=== PATIENT | male | born 1940 | race Caucasian/White ===

== ENCOUNTER 2022-06-22 15:09 | Inpatient (IN) | payer OTHER ==
[~2022-06-22] VITALS: Ht 190.5 cm; Wt 104.3 kg
[2022-06-22] MEDS ORDERED: MORPHINE SULFATE 4 MG/1 ML DISP.SYRIN IV ONE (15:15)
[2022-06-22] MEDS ORDERED: AMLO5TAB4 PO (15:21)
[2022-06-22] MEDS ORDERED: APIX5TAB PO (15:21)
[2022-06-22 15:32] LABS: HEMATOCRIT 41.3 % (36.7-47.1); MEAN CORPUSCULAR HEMOGLOBIN 30.9 uug (23.8-33.4); MEAN CORPUSCULAR VOLUME 94.1 fL (73.0-96.2); PLATELET COUNT (AUTO) 206 K/uL (152-348)
[2022-06-22 15:40] LABS: CARBON DIOXIDE 30 mmol/L (21-32); CHLORIDE 101 mmol/L (98-107); CREATININE 1.5 mg/dL (0.6-1.3); GLUCOSE 123 mg/dL (74-106); UREA NITROGEN, BLOOD 32 mg/dL (7-18)
[2022-06-22] MEDS ORDERED: DEXAMETHASONE SOD PHOSPHATE 4 MG INJ ONE (15:40)
[2022-06-22] MEDS ORDERED: PROPOFOL 200 MG/20 ML BOTTLE ONE (15:40)
[2022-06-22] MEDS ORDERED: ONDANSETRON 4 MG/2 ML VIAL ONE (15:40)
[2022-06-22] MEDS ORDERED: VECURONIUM BROMIDE 10 MG VIAL IV ONE (15:40)
[2022-06-22] MEDS ORDERED: SUCCINYLCHOLINE CHLORIDE 200 MG/10 ML VIAL ONE (15:40)
[2022-06-22] MEDS ORDERED: ESMOLOL HCL 100 MG/10 ML VIAL IV ONE (15:40)
[2022-06-22] MEDS ORDERED: LIDOCAINE-MPF 2% 5 ML VIAL ONE (15:40)
[2022-06-22] MEDS ORDERED: GLYCOPYRROLATE 0.2 MG/ML VIAL ONE (15:40)
[2022-06-22] MEDS ORDERED: CEFAZOLIN 1 G VIAL ONE (15:40)
[2022-06-22] MEDS ORDERED: MORPHINE SULFATE 4 MG/1 ML DISP.SYRIN ONE (15:42)
[2022-06-22 15:53] LABS: ALANINE AMINOTRANSFERASE 42 U/L (16-63); ALKALINE PHOSPHATASE 71 U/L (50-136); ASPARTATE AMINOTRANSFERASE 78 U/L (15-37); BILIRUBIN,TOTAL 0.9 mg/dL (0.2-1.0); TOTAL PROTEIN, SERUM 7.8 g/dL (6.4-8.2)
--- NOTE | 2022-06-22 16:00 | NUR ---
Covid-19 swab sample sent to lab.
--- NOTE | 2022-06-22 16:45 | NUR ---
Pt YONATHAN R83 d/t fall. "I was at the gym and I slipped" per pt. Seen by Dr. Lopez for MSE.
--- NOTE | 2022-06-22 18:46 | NUR ---
NPO after midnight per MD.
--- NOTE | 2022-06-22 19:06 | NUR ---
Endorsed to Roseanna RG.
--- NOTE | 2022-06-22 19:30 | NUR ---
SBAR FROM VALERIANO Quiroz RN; PT IN NAD; STATES PAIN IS 6/10 ON RT HIP. PT VSS. WILL CALL 3RD FLOOR FOR ADMISSION
--- NOTE | 2022-06-22 20:10 | NUR ---
COLIN TO VALERIANO Proctor LVN. PT IS GOING TO RM 310.
--- NOTE | 2022-06-22 21:41 | NUR ---
PT BEING TRANSFERRED UPSTAIRS BY RN
--- NOTE | 2022-06-22 22:00 | NUR ---
RECEIVED PATIENT VIA GURNEY FROM ER. PATIENT IS A/O X4. C/O PAIN IN RIGHT HIP. VSS. HEPLOCK INTACT AND PATENT, NOTED TO RIGHT AC #20 GAUGE. NO SOB NOTED. ORIENTED PATIENT TO ROOM AND CALL LIGHT. CALL LIGHT IN REACH. ALL NEEDS ATTENDED.
[2022-06-22] MEDS: MORPHINE SULFATE 2 MG/1 ML DISP.SYRIN IV PRN (22:14)
[2022-06-22] MEDS ORDERED: REMEDY ESSENTIAL ZINC PASTE 113 GM TP PRN (22:15)
[2022-06-22] MEDS ORDERED: ONDANSETRON 4 MG/2 ML VIAL IV PRN (22:15)
[2022-06-22] MEDS ORDERED: MAGNESIUM HYDROXIDE 30 ML LIQUID UDC PO PRN (22:15)
[2022-06-22] MEDS ORDERED: ACETAMINOPHEN 325 MG TABLET PO PRN (22:15)
[2022-06-22 22:30] VITALS: BP 153/76
[2022-06-23] MEDS: MORPHINE SULFATE 2 MG/1 ML DISP.SYRIN IV PRN ×5 (01:42→17:49)
[2022-06-23 05:56] VITALS: BP 143/69
[2022-06-23 06:51] LABS: HEMATOCRIT 35.3 % (36.7-47.1); MEAN CORPUSCULAR HEMOGLOBIN 31.4 uug (23.8-33.4); MEAN CORPUSCULAR VOLUME 93.2 fL (73.0-96.2); PLATELET COUNT (AUTO) 173 K/uL (152-348)
[2022-06-23 07:22] LABS: THYROID STIMULATING HORMONE 3.663 mIU/mL (0.358-3.740)
[2022-06-23 07:26] LABS: ALKALINE PHOSPHATASE 57 U/L (50-136); ASPARTATE AMINOTRANSFERASE 57 U/L (15-37); BILIRUBIN,TOTAL 1.4 mg/dL (0.2-1.0); CARBON DIOXIDE 28 mmol/L (21-32); CHLORIDE 103 mmol/L (98-107); CHOLESTEROL 109 mg/dL (<200); CREATININE 1.4 mg/dL (0.6-1.3); GLUCOSE 121 mg/dL (74-106); HDL CHOLESTEROL 71 mg/dL (40-60); MAGNESIUM 1.9 mg/dL (1.8-2.4); PHOSPHOROUS 3.7 mg/dL (2.5-4.9); POTASSIUM 3.9 mmol/L (3.5-5.1); TOTAL PROTEIN, SERUM 6.5 g/dL (6.4-8.2); TRIGLYCERIDES 32 MG/DL (30-150); UREA NITROGEN, BLOOD 24 mg/dL (7-18)
--- NOTE | 2022-06-23 07:45 | NUR ---
DR ESCOBAR HERE AND AWARE THAT PATIENT NEEDS CARDIAC CLEARANCE FOR ORTHO SURGERY STATED OKAY WILL SEE PATIENT AND THEN LATER SAID THAT PATIENT SHOULD BE PLACED ON TELE MONITORING AND WILL ORDER EKG AND ECHO AND NOTED.
[2022-06-23 08:01] LABS: ALANINE AMINOTRANSFERASE 30 U/L (16-63)
--- NOTE | 2022-06-23 08:30 | NUR ---
DR ESCOBAR STATED THAT HE WILL NOT CLEAR PATIENT FOR SURGERY TODAY STATED THAT PATIENT CAN BE FED CARDIAC DIET ORDERED PATIENT AWARE.
[2022-06-23 08:43] LABS: *BILIRUBIN,URIN NEGATIVE (NEGATIVE); *CLARITY,URINE CLEAR (CLEAR); *COLOR,URINE YELLOW (YELLOW); *KETONES,URINE NEGATIVE (NEGATIVE); *UROBILINOGEN,URINE 0.2 E.U./dl (NORMAL); LEUKOCYTE ESTERASE ,URINE NEGATIVE (NEGATIVE); NITRITE, URINE NEGATIVE (NEGATIVE); PH,URINE 5.5 (5.0-8.0); UGLUCOSE NEGATIVE (NEGATIVE)
--- NOTE | 2022-06-23 08:55 | NUR ---
PATIENT C/O HAVING RIGHT HIP PAIN MEDICATED WITH MORPHINE ORDERED PATIENT C/O WANTS TO MOVE HIS BOWEL OFFERED BEDPAN AND HE STATED NOT YET WILL LET ME KNOW WHEN HE IS READY.
[2022-06-23] MEDS: FUROSEMIDE 40 MG/4 ML VIAL IV SCH ×2 (09:29→16:41)
[2022-06-23] MEDS: AMLODIPINE 5 MG TABLET PO SCH ×2 (09:44→21:51)
[2022-06-23 09:46] LABS: *BLOOD, URINE TRACE (NEGATIVE)
[2022-06-23 11:16] LABS: BACTERIA,URINE NONE SEEN /HPF (NONE SEEN); RBC,URINE 0-3 /HPF (0-3); SQUAMOUS EPITHELIAL CELL,UR FEW /HPF (NONE SEEN); WBC,URINE 0-3 /HPF (0-3)
[2022-06-23 12:38] VITALS: BP 138/73
--- NOTE | 2022-06-23 13:04 | NUR ---
DR MERCHANT HERE AND SEEN PATIENT WITH ORDER FOR PROCEDURE CONSCENT SCHEDULED FOR TOMORROW AT 0930 PATIENT WILL BE NPO AFTER MIDNIGHT.DR MERCHANT AWARE THAT THE WELFARE DIRECTOR DR ESCOBAR IS NOT CLEARING THE PATIENT YET STATED THAT HE WILL WAIT TO SEE WHAT IS GOING ON STILL AWAITING FOR THE ECHO ORDERED.DR MERCHANT STATED THAT PATIENT MIGHT ULTIMATELY BE CLEARED BY THE ANESTESIOLOGIST.
--- NOTE | 2022-06-23 15:00 | NUR ---
IT HAS BECOME IMPOSSIBLE TO TAKE CARE OF PATIENT IN TERMS OF TURNING HIM AND ENSURING NO PRESSURE PATIENT HAS ADAMANTLY REFUSED TO BE TURNED DESPITE ALL THE HELP TO ENSURE THAT HE IS TURNED SAFELY RIGHT THIGH IS SWOLLEN ESPECIALLY THE THIGHS WAS ABLE TO PLACE PILLOWS UNDER THE LEGS PRE OP TEACHING IN PROGRESS AT THIS TIME WILL CONTINUE TO OBSERVE.
[2022-06-23 15:49] VITALS: BP 145/72
--- NOTE | 2022-06-23 16:55 | NUR ---
FRIEND GIOVANA HERE TO SEE PATIENT PATIENT OKAYED FOR INFORMATION TO BE GIVEN TO HIM RE HIS PLAN OF CARE.
--- NOTE | 2022-06-23 17:49 | NUR ---
MEDICATED FOR PAIN PER PATIENTS REQUEST PATIENT CONTINUES TO REFUSE TO BE MOVED OR TURNED DESPITE PAIN MEDS BEING GIVEN WILL CONTINUE TO ENCOURAGE AND EDUCATE PATIENT ON THE IMPORTANCE OF BEING REPOSITIONED TO PREVENT SKIN BREAK DOWN.EXPRESSED UNDERSTANDING BUT CONTINUE TO REFUSE.
[2022-06-23 20:00] VITALS: BP 134/84
[2022-06-23] MEDS ORDERED: ENALAPRILAT DIHYDRATE 1.25 MG/1 ML VIAL IV PRN (22:15)
[2022-06-24] VITALS: BP 150/72
--- NOTE | 2022-06-24 00:23 | NUR ---
PATIENT REFUSED TO CHANGE POSITION. CUPOLA WORKER EDUCATED PATIENT ON THE IMPORTANCE OF TURNING TO AIDE WITH CIRCULATION AND MINIMIZE CHANCES OF PRESSURE SORES. PATIENT VOICE UNDERSTANDING. STILL REFUSED TO TURN. KOURTNEY Cruz RN
[2022-06-24] MEDS: MORPHINE SULFATE 2 MG/1 ML DISP.SYRIN IV PRN ×4 (03:48→21:02)
[2022-06-24 04:00] VITALS: BP 132/86
--- NOTE | 2022-06-24 04:22 | NUR ---
PATIENT REFUSED TO HAVE PHOTO TAKEN OF SACRUM. PATIENT ENCOURAGED TO TURN Q2 HOURS. PATIENT CONTINUES TO REFUSE. STATED, "IT HURTS TO TURN." CONTINUING EDUCATION DIRECTOR ADMIN PRN MORPHINE. PATIENT STILL REFUSED TO TURN. KOURTNEY Cruz RN
--- NOTE | 2022-06-24 05:02 | NUR ---
CIRCLE BEVELER MADE SEVERAL ATTEMPTS TO TURN PATIENT. PATIENT C/O PAIN, CIRCLE BEVELER ADMIN MORPHINE, PATIENT ADAMANTLY REFUSED TO BE TURN. KOURTNEY Cruz RN
[2022-06-24 07:27] LABS: HEMATOCRIT 35.1 % (36.7-47.1); MEAN CORPUSCULAR HEMOGLOBIN 32.4 uug (23.8-33.4); MEAN CORPUSCULAR VOLUME 94.8 fL (73.0-96.2); PLATELET COUNT (AUTO) 183 K/uL (152-348)
[2022-06-24] MEDS: AMLODIPINE 5 MG TABLET PO SCH ×2 (08:05→20:52)
[2022-06-24] MEDS: PANTOPRAZOLE SODIUM 40 MG VIAL IV SCH (08:16)
[2022-06-24 08:34] LABS: ALANINE AMINOTRANSFERASE 22 U/L (16-63); ALKALINE PHOSPHATASE 57 U/L (50-136); ASPARTATE AMINOTRANSFERASE 56 U/L (15-37); BILIRUBIN,TOTAL 1.4 mg/dL (0.2-1.0); CARBON DIOXIDE 29 mmol/L (21-32); CHLORIDE 100 mmol/L (98-107); CREATININE 1.4 mg/dL (0.6-1.3); GLUCOSE 140 mg/dL (74-106); MAGNESIUM 2.1 mg/dL (1.8-2.4); PHOSPHOROUS 3.6 mg/dL (2.5-4.9); POTASSIUM 3.6 mmol/L (3.5-5.1); TOTAL PROTEIN, SERUM 7.3 g/dL (6.4-8.2); UREA NITROGEN, BLOOD 26 mg/dL (7-18)
--- NOTE | 2022-06-24 09:15 | NUR ---
PATIENT SEEN BY DR ESCOBAR WITH NEW ORDERS STATED THAT PATIENT IS NOT CLEARED FOR SURGERY TODAY CALLED THE OR DEPT AND RELAYED TO TOD.
[2022-06-24] MEDS: CARVEDILOL 6.25 MG TABLET PO SCH ×2 (09:42→17:36)
[2022-06-24] MEDS ORDERED: POTASSIUM CHLORIDE 20 MEQ POWDER PACKET PO ONE (10:00)
[2022-06-24 11:52] VITALS: BP 116/66
--- NOTE | 2022-06-24 13:24 | NUR ---
MEDICATED WITH MORPHINE ORDERED PATIENT CONTINUES TO REFUSED TO BE TURNED IN BED AND CHANGED PATIENT EDUCATED ON THE IMPORTANCE OF BEING CHANGED AND TURNED PATIENTS FRIEND GIOVANA AT HIS BEDSIDE VISITING AND ALSO SPOKE WITH PATIENT TO ALLOW TO BE CHANGED AND HE STATED HE WOULD WILL ATTEMPT AGAIN.
--- NOTE | 2022-06-24 15:30 | NUR ---
WE WERE FINALLY ABLE TO TURN AND CHANGE PATIENTS BED LINED WITH MAXIMUM ASSIST OF 3 PEOPLE PATIENT IS UNCOOPERATIVE AND RESISTIVE MADE COMFORTABLE WILL OBSERVE.
[2022-06-24 15:45] VITALS: BP 132/62
--- NOTE | 2022-06-24 18:00 | NUR ---
RESTING IN BED MORE COMFORTABLE VOIDING WITH URINAL WILL CONTINUE TO OBSERVE.
[2022-06-24 20:00] VITALS: BP 129/63
[2022-06-24] MEDS: REMEDY ESSENTIAL ZINC PASTE 113 GM TOP SCH (20:54)
[2022-06-25] VITALS: BP 126/51
[2022-06-25 04:00] VITALS: BP 151/62
--- NOTE | 2022-06-25 06:48 | NUR ---
PATIENT STARTED MID NIGHT NPO FO PLAN OF RIGHT HIP SURGERY. PATIENT SLEPT WELL. PATIENT REQUESTED MORPHIN GIVEN VIA IV ON RAC #20G AND NOTED EFFECTIVE. PATIENT REMAINED STABLE THROUGOUT THE SHIFT. ABLE TO MAKE NEEDS KNOWN. PATIENT KEPT CLEAN DRY AND COMFORTABLE.ALL NEEDS MET AND ATTENDED. V/S WNL.WILL ENDORSE TO AM SHIFT.
[2022-06-25 07:18] LABS: CARBON DIOXIDE 33 mmol/L (21-32); CHLORIDE 99 mmol/L (98-107); CREATININE 1.6 mg/dL (0.6-1.3); GLUCOSE 144 mg/dL (74-106); MAGNESIUM 2.2 mg/dL (1.8-2.4); PHOSPHOROUS 3.1 mg/dL (2.5-4.9); POTASSIUM 3.7 mmol/L (3.5-5.1); UREA NITROGEN, BLOOD 37 mg/dL (7-18)
[2022-06-25 07:32] LABS: HEMATOCRIT 31.4 % (36.7-47.1); MEAN CORPUSCULAR HEMOGLOBIN 32.1 uug (23.8-33.4); MEAN CORPUSCULAR VOLUME 94.3 fL (73.0-96.2); PLATELET COUNT (AUTO) 183 K/uL (152-348)
[2022-06-25] MEDS: MORPHINE SULFATE 2 MG/1 ML DISP.SYRIN IV PRN ×2 (08:40→14:20)
[2022-06-25] MEDS: POTASSIUM CHLORIDE 10 MEQ, LIDOCAINE-MPF 1% 1 ML in IV DEXTROSE 5% 100 ML IV SCH ×2 (08:40→09:07)
[2022-06-25] MEDS: AMLODIPINE 5 MG TABLET PO SCH ×2 (09:07→21:17)
[2022-06-25] MEDS: PANTOPRAZOLE SODIUM 40 MG VIAL IV SCH (09:07)
[2022-06-25] MEDS: CARVEDILOL 6.25 MG TABLET PO SCH ×2 (09:07→17:17)
[2022-06-25] MEDS: REMEDY ESSENTIAL ZINC PASTE 113 GM TOP SCH ×2 (09:08→21:18)
[2022-06-25 11:27] VITALS: BP 151/66
[2022-06-25] MEDS ORDERED: VANCOMYCIN 1000 MG VIAL ONE (14:48)
[2022-06-25] MEDS ORDERED: BUPIVACAINE PF 0.5% 30 ML VIAL ONE (14:49)
--- NOTE | 2022-06-25 15:30 | NUR ---
pt went to or via bed for surgery in stable condition
[2022-06-25] MEDS ORDERED: MIDAZOLAM HCL 2 MG/2 ML VIAL ONE (15:33)
[2022-06-25] MEDS ORDERED: KETAMINE HCL 500 MG/10 ML INJ ONE (15:33)
[2022-06-25] MEDS ORDERED: FENTANYL CITRATE 100 MCG/2 ML AMPUL ONE (15:33)
[2022-06-25] MEDS ORDERED: ROCURONIUM BROMIDE 50 MG/5 ML VIAL ONE (15:34)
[2022-06-25] MEDS ORDERED: MORPHINE SULFATE 4 MG/1 ML DISP.SYRIN IV PRN (18:45)
--- NOTE | 2022-06-25 18:57 | NUR ---
pt received from recovery room via bed in stable condition ,vs are stable call light with in reach
--- NOTE | 2022-06-25 19:00 | NUR ---
received patient from OR, asleep, but arousable. no s/s of sob, no s/s of chest pain, ice pack on right hip, no complain of pain at this time, cont to monitor.
[2022-06-25] MEDS: IV D5W-0.45% NS +20 KCL 1,000 ML IV PRN (19:14)
--- NOTE | 2022-06-25 19:30 | NUR ---
Patient awake, sleep intermittently, denies pain, A fib with PVC in tele. s/p im nailing of right hip, dressing intact, ice pack in place for pain and swelling, cont to monitor.
[2022-06-25 20:00] VITALS: BP 133/70
--- NOTE | 2022-06-25 21:35 | NUR ---
patient awake now, given IS, given instruction how to use it, able to follow, patient using it at this time, cont to monitor.
[2022-06-25] MEDS: CEFAZOLIN 1 G in IV DEXTROSE 5% 50 ML IV SCH (23:51)
[2022-06-26] VITALS: BP 123/68
[2022-06-26 04:00] VITALS: BP 126/37
--- NOTE | 2022-06-26 06:35 | NUR ---
Patient awake, drinking water, tolerate well no n/v noted, denies pain, continue ice pack on right hip surgery, with three sites dressing noted, one third one toward the feet has some bleeding noted moderate amount, kept site clean and dry, bed pads was changed, patient right leg, color wnl, pulses present, able to moved legs, kept elevated with pillow, cont incentive spirometer use, cont to monitor.
[2022-06-26 06:58] LABS: HEMATOCRIT 28.9 % (36.7-47.1); MEAN CORPUSCULAR HEMOGLOBIN 31.4 uug (23.8-33.4); MEAN CORPUSCULAR VOLUME 93.7 fL (73.0-96.2); PLATELET COUNT (AUTO) 200 K/uL (152-348)
[2022-06-26] MEDS: CEFAZOLIN 1 G in IV DEXTROSE 5% 50 ML IV SCH (07:07)
[2022-06-26 07:14] LABS: ALANINE AMINOTRANSFERASE 29 U/L (16-63); ALKALINE PHOSPHATASE 37 U/L (50-136); ASPARTATE AMINOTRANSFERASE 56 U/L (15-37); CARBON DIOXIDE 33 mmol/L (21-32); CHLORIDE 102 mmol/L (98-107); CREATININE 1.4 mg/dL (0.6-1.3); GLUCOSE 166 mg/dL (74-106); MAGNESIUM 2.4 mg/dL (1.8-2.4); PHOSPHOROUS 3.9 mg/dL (2.5-4.9); POTASSIUM 4.9 mmol/L (3.5-5.1); TOTAL PROTEIN, SERUM 6.4 g/dL (6.4-8.2); UREA NITROGEN, BLOOD 39 mg/dL (7-18)
[2022-06-26] MEDS: PANTOPRAZOLE SODIUM 40 MG TABLET.DR PO SCH (07:42)
[2022-06-26] MEDS: CARVEDILOL 6.25 MG TABLET PO SCH ×2 (07:43→17:16)
[2022-06-26] MEDS: AMLODIPINE 5 MG TABLET PO SCH ×2 (08:06→21:05)
[2022-06-26] MEDS: IV D5W-0.45% NS +20 KCL 1,000 ML IV PRN (08:26)
[2022-06-26] MEDS ORDERED: FUROSEMIDE 20 MG/2 ML VIAL IV ONE (08:45)
[2022-06-26] MEDS: REMEDY ESSENTIAL ZINC PASTE 113 GM TOP SCH ×2 (09:51→21:05)
[2022-06-26 11:45] VITALS: BP 120/81
[2022-06-26 16:55] VITALS: BP 132/67
--- NOTE | 2022-06-26 19:35 | NUR ---
Received patient in bed, alert oriented, no sob no chest pain, tele monitor A fib with pvc controlled, denies pain at this time, dressing intact,with slight bleeding on lower part of thigh, cont to monitor.
[2022-06-26 20:39] VITALS: BP 132/72
[2022-06-27 00:03] VITALS: BP 125/58
[2022-06-27] MEDS: HYDROCODONE/APAP 10-325 MG TABLET PO PRN ×3 (00:09→18:42)
--- NOTE | 2022-06-27 03:57 | NUR ---
Patient asleep, no sob no chest paint, no complain of pain at this time, complain of 7/10 hips pain given pain meds with effective results. cont to monitor.
[2022-06-27 04:14] VITALS: BP 113/53
[2022-06-27] MEDS: PANTOPRAZOLE SODIUM 40 MG TABLET.DR PO SCH (06:14)
--- NOTE | 2022-06-27 06:15 | NUR ---
Patient awake, no further complain of pain at this time, no further bleeding noted on right hip surgical incision, cont to monitor.
[2022-06-27] MEDS: CARVEDILOL 6.25 MG TABLET PO SCH ×2 (08:11→17:07)
[2022-06-27] MEDS: AMLODIPINE 5 MG TABLET PO SCH ×2 (08:11→20:51)
[2022-06-27] MEDS: REMEDY ESSENTIAL ZINC PASTE 113 GM TOP SCH ×2 (08:40→20:52)
[2022-06-27] MEDS: APIXABAN 5 MG TABLET PO SCH ×2 (11:06→20:47)
[2022-06-27 11:35] VITALS: BP 118/65
[2022-06-27] MEDS: FUROSEMIDE 20 MG TABLET PO SCH (12:03)
[2022-06-27 16:35] VITALS: BP 103/59
[2022-06-27 20:49] VITALS: BP 107/53
--- NOTE | 2022-06-27 21:24 | NUR ---
amlodipine Addendum: 06/27/22 at 2126 by SANTO BENITEZ RN AMLODIPINE HELD FOR LOW BLOOD PRESSURE 107/53.
[2022-06-28] MEDS: HYDROCODONE/APAP 10-325 MG TABLET PO PRN ×2 (00:15→20:40)
[2022-06-28 00:31] VITALS: BP 126/60
[2022-06-28 04:20] VITALS: BP 105/67
[2022-06-28] MEDS: PANTOPRAZOLE SODIUM 40 MG TABLET.DR PO SCH (06:02)
[2022-06-28 07:53] LABS: MEAN CORPUSCULAR HEMOGLOBIN 31.3 uug (23.8-33.4); MEAN CORPUSCULAR VOLUME 93.5 fL (73.0-96.2); PLATELET COUNT (AUTO) 205 K/uL (152-348)
[2022-06-28] MEDS: CARVEDILOL 6.25 MG TABLET PO SCH ×2 (08:01→17:06)
[2022-06-28] MEDS: FUROSEMIDE 20 MG TABLET PO SCH (08:01)
[2022-06-28] MEDS: APIXABAN 5 MG TABLET PO SCH ×2 (08:02→20:19)
[2022-06-28] MEDS: GLUCERNA SHAKE 237 ML CAN PO SCH (08:02)
[2022-06-28] MEDS: AMLODIPINE 5 MG TABLET PO SCH ×2 (08:02→20:20)
[2022-06-28 08:23] LABS: CARBON DIOXIDE 31 mmol/L (21-32); CHLORIDE 97 mmol/L (98-107); CREATININE 1.4 mg/dL (0.6-1.3); GLUCOSE 119 mg/dL (74-106); MAGNESIUM 2.5 mg/dL (1.8-2.4); PHOSPHOROUS 3.7 mg/dL (2.5-4.9); POTASSIUM 4.3 mmol/L (3.5-5.1); UREA NITROGEN, BLOOD 53 mg/dL (7-18)
[2022-06-28] MEDS: REMEDY ESSENTIAL ZINC PASTE 113 GM TOP SCH ×2 (08:29→20:20)
[2022-06-28 11:08] VITALS: BP 123/57
[2022-06-28 15:04] VITALS: BP 140/57
[2022-06-28 21:01] VITALS: BP 123/53
[2022-06-29 00:17] VITALS: BP 122/52
[2022-06-29 04:38] VITALS: BP 127/57
[2022-06-29] MEDS: HYDROCODONE/APAP 10-325 MG TABLET PO PRN ×3 (04:54→17:19)
[2022-06-29] MEDS: PANTOPRAZOLE SODIUM 40 MG TABLET.DR PO SCH (06:04)
[2022-06-29] MEDS: GLUCERNA SHAKE 237 ML CAN PO SCH (09:00)
[2022-06-29] MEDS: FUROSEMIDE 20 MG TABLET PO SCH (09:04)
[2022-06-29] MEDS: APIXABAN 5 MG TABLET PO SCH ×2 (09:04→20:25)
[2022-06-29] MEDS: CARVEDILOL 6.25 MG TABLET PO SCH ×2 (09:04→17:15)
[2022-06-29] MEDS: AMLODIPINE 5 MG TABLET PO SCH ×2 (09:04→20:25)
[2022-06-29] MEDS: REMEDY ESSENTIAL ZINC PASTE 113 GM TOP SCH ×2 (09:54→20:51)
[2022-06-29 12:00] VITALS: BP 124/56
[2022-06-29 17:35] VITALS: BP 104/54
[2022-06-29 20:00] VITALS: BP 110/55
--- NOTE | 2022-06-30 05:48 | NUR ---
dc folly catheter per md orders
[2022-06-30] MEDS: PANTOPRAZOLE SODIUM 40 MG TABLET.DR PO SCH (06:07)
[2022-06-30 06:51] LABS: HEMATOCRIT 25.5 % (36.7-47.1); MEAN CORPUSCULAR HEMOGLOBIN 31.2 uug (23.8-33.4); MEAN CORPUSCULAR VOLUME 92.3 fL (73.0-96.2); PLATELET COUNT (AUTO) 268 K/uL (152-348)
[2022-06-30 07:26] LABS: CREATININE 1.3 mg/dL (0.6-1.3); MAGNESIUM 2.3 mg/dL (1.8-2.4); PHOSPHOROUS 3.5 mg/dL (2.5-4.9)
[2022-06-30] MEDS: HYDROCODONE/APAP 10-325 MG TABLET PO PRN ×2 (08:45→13:59)
[2022-06-30] MEDS: FUROSEMIDE 20 MG TABLET PO SCH (08:46)
[2022-06-30] MEDS: CARVEDILOL 6.25 MG TABLET PO SCH ×2 (08:47→17:22)
[2022-06-30] MEDS: APIXABAN 5 MG TABLET PO SCH ×2 (08:48→21:08)
--- NOTE | 2022-06-30 10:49 | NUR ---
Rcvd pt in bed AAOX4. No SOB noted. [place] 10mg PRN given. Pt tolerated it well.
[2022-06-30 12:03] VITALS: BP 134/48
[2022-06-30] MEDS: GLUCERNA SHAKE 237 ML CAN PO SCH (13:21)
[2022-06-30] MEDS: AMLODIPINE 5 MG TABLET PO SCH ×2 (13:23→21:07)
[2022-06-30] MEDS: REMEDY ESSENTIAL ZINC PASTE 113 GM TOP SCH ×2 (13:23→21:07)
[2022-06-30 16:00] VITALS: BP 109/49
--- NOTE | 2022-06-30 17:57 | NUR ---
Held Coreg 6.25 mg, bp 100/46 hr 58. No SOB pt stable and comfortable. Denies pain at this time. Helplock right foream #20 intact and patent.
[2022-06-30 20:00] VITALS: BP 110/52
[2022-07-01 04:00] VITALS: BP 117/56
--- NOTE | 2022-07-01 04:29 | NUR ---
AAOx4 Admitted for right hip fracture. S/P right hip IM nailing on 06/[address] Webster. All needs attended. Right hip dressing intact with karin. Fall precautions maintained. Siderails up for safety. Call desai within reach. Tolerated po meds well. Denies any pain nor any discomfort. Voiding well in the urinal. VSS.
[2022-07-01] MEDS: PANTOPRAZOLE SODIUM 40 MG TABLET.DR PO SCH (06:09)
[2022-07-01] MEDS: CARVEDILOL 6.25 MG TABLET PO SCH (08:00)
[2022-07-01] MEDS: HYDROCODONE/APAP 10-325 MG TABLET PO PRN (08:47)
[2022-07-01] MEDS: APIXABAN 5 MG TABLET PO SCH (08:51)
[2022-07-01] MEDS: GLUCERNA SHAKE 237 ML CAN PO SCH (08:57)
[2022-07-01] MEDS: REMEDY ESSENTIAL ZINC PASTE 113 GM TOP SCH (08:59)
[2022-07-01] MEDS ORDERED: HYDR-3980 PO (09:30)
[2022-07-01] MEDS ORDERED: FUROSEMIDE 20 MG TABLET PO SCH (09:30)
[2022-07-01 12:00] VITALS: BP_SYST 125; BP_SYST 130; BP_DIAS 62; BP_DIAS 81
--- NOTE | 2022-07-01 13:14 | NUR ---
PT DISCHARGED TO [facility]. REPORT GIVEN TO BRIAN. PT AAOX3 DRESSING TO RT HIP D/INTACT. COVID TEST DONE PRIOR TO DEPARTURE NEGATIVE. ALL ORDERS CARRIED OUT PRIOR TO DISCHARGE.PT IN [facility] SPIRITS.
== END 2022-07-01 12:55 | DRG 480 ==
LOC: ER 15:09 → MEDSURG3 20:48 → TELE3 06-23 09:57 → MEDSURG3 06-29 09:20
PROVIDERS: ADMIT Internal Medicine; ATTEND Internal Medicine
PROC: 0QS636Z Reposition Right Upper Femur with Intramedullary Internal Fixation Device, Percutaneous Approach (ICD-10-PCS; principal; 2022-06-25)
DX: S72.21XA Displaced subtrochanteric fracture of right femur, initial encounter for closed fracture (principal); I50.43 Acute on chronic combined systolic (congestive) and diastolic (congestive) heart failure; N17.0 Acute kidney failure with tubular necrosis; I48.20 Chronic atrial fibrillation, unspecified; D68.69 Other thrombophilia; I31.39 Other pericardial effusion (noninflammatory); I47.20 Ventricular tachycardia, unspecified; Z79.01 Long term (current) use of anticoagulants; I11.0 Hypertensive heart disease with heart failure; E78.5 Hyperlipidemia, unspecified; I25.10 Atherosclerotic heart disease of native coronary artery without angina pectoris; I25.2 Old myocardial infarction; W01.0XXA Fall on same level from slipping, tripping and stumbling without subsequent striking against object, initial encounter; Y92.39 Other specified sports and athletic area as the place of occurrence of the external cause; Z20.822 Contact with and (suspected) exposure to COVID-19; Z74.09 Other reduced mobility; R74.01 Elevation of levels of liver transaminase levels; R73.9 Hyperglycemia, unspecified; E66.9 Obesity, unspecified; Z68.28 Body mass index [BMI] 28.0-28.9, adult; D64.9 Anemia, unspecified; Z87.891 Personal history of nicotine dependence
CPT/HCPCS: 36415; 71045; 73502; 73503; 83735; 84100; 84443; 84484; 85025; 93005; 93307; A4649; A4663; A6209; C1713; C9113; G0378; J0330; J0690; J1100; J1940; J2001; J2250; J2270; J2405; J3010; J3370; J3480; J3490